=== PATIENT | male | born 1955 | race Caucasian/White ===

== ENCOUNTER → 2024-11-07 15:22 | Outpatient (REF) | payer MEDICARE, OTHER, SELFPAY ==
[2024-11-07 16:49] LABS: Urine Albumin Negative (Neg - Trace); Urine Bilirubin Negative (Negative); Urine Character Clear (Clear); Urine Color Yellow; Urine Glucose Negative (Negative); Urine Ketone Negative (Negative); Urine Leukocyte Negative (Negative); Urine Nitrite Negative (Negative); Urine Occult Blood Negative (Negative); Urine Specific Gravity 1.005 (<1.030); Urine Urobilinogen Negative (Neg - 1+)
== END ==
LOC: REG 15:22
PROVIDERS: ATTENDING PHYSICIAN Urology; FAMILY PHYSICIAN Family Medicine
DX: R31.9 Hematuria, unspecified (principal)
CPT/HCPCS: 81003; 87086

== ENCOUNTER → 2025-01-15 10:25 | Outpatient (REF) | payer MEDICARE, OTHER, SELFPAY | LOC: RAD 10:25 | PROVIDERS: ATTENDING PHYSICIAN Physician Assistant; FAMILY PHYSICIAN Family Medicine | DX: Q63.1 Lobulated, fused and horseshoe kidney (principal); N20.0 Calculus of kidney; N13.5 Crossing vessel and stricture of ureter without hydronephrosis | CPT/HCPCS: 78708; A9539 ==

== ENCOUNTER → 2025-01-19 15:04 | Outpatient (REF) | payer MEDICARE, OTHER, SELFPAY | LOC: RAD 15:04 | PROVIDERS: ATTENDING PHYSICIAN Physician Assistant; FAMILY PHYSICIAN Family Medicine | DX: Q63.1 Lobulated, fused and horseshoe kidney (principal); N20.0 Calculus of kidney; N13.5 Crossing vessel and stricture of ureter without hydronephrosis | CPT/HCPCS: 76775 ==